=== PATIENT | female | born 1975 | race Caucasian/White ===

== ENCOUNTER 2019-12-22 02:37 | Observation (INO) ==
--- OUTSIDE RECORDS SUMMARY | 2019-12-22 02:44 | External Medical Summary | Continuity of Care Document ---
:1975 Author Name Mckayla Guerrier, Provider Address Unavailable Unavailable , Care Team Providers Name Role Phone Unavailable Unavailable Unavailable PCP, NO Unavailable Unavailable Unavailable Unavailable Unavailable Problems Encounter for routine pelvic examination (V72.31) (Z01.419) Allergies and Adverse Reactions No Known Drug Allergies (Allergy) Medications Ashlee LINARES M.D. Refills: 0 Procedures History of Oral Surgery Tooth Extraction Status: Completed Immunizations Immunizations not documented Family History aunt Family history of Colon Cancer (V16.0) Status: Active Social History - Smoking Status Never smoker Plan of Treatment Planned Observations Planned Goals not documented Results No Known Results Results not documented
[2019-12-22] MEDS ORDERED: ONDANSETRON INJ 2 MG/ML 2 ML VIAL IV STA (02:51)
[2019-12-22] MEDS ORDERED: ACETAMINOPHEN 1,000 MG/100 ML VIAL IV STA (02:51)
[2019-12-22] MEDS ORDERED: SODIUM CHLORIDE 0.9% 1000ML 1,000 ML IV ONE (02:51)
--- NOTE | 2019-12-22 02:54 | Emergency Department Note ---
History of Present Illness General Chief complaint: Abdominal Pain Stated complaint: ABDOMINAL PAIN History of Present Illness Maximum Pain Intensity: 5 This 44-year-old presents to the ER complaining of abdominal pain Location: Right lower quadrant Quality: Achy Severity: Moderate Duration: Tonight Timing: Started around 7:30 PM Context: Symptoms persisted and patient came in Modifying factors: better with rest; worse with activity Patient denies chest pain, dyspnea, fevers, vomiting, diarrhea, urinary symptoms. No prior abdominal surgeries. Home Medications Home Medications Medication Instructions Recorded Confirmed Type lamotrigine 25 mg PO DAILY 12/22/19 12/22/19 History lamotrigine 200 mg PO DAILY 12/22/19 12/22/19 History losartan 25 mg PO DAILY 12/22/19 12/22/19 History Allergies Allergy/AdvReac Type Severity Reaction Status Date / Time No Known Allergies Allergy Unverified 12/22/19 03:16 Past Med/Surg History Medical History High blood pressure Surgical History No pertinent past surgical history Social History Feels Safe at Home: Yes Smoking Status: Never smoker Review of Systems A total of 10 systems reviewed and were otherwise negative Physical Exam Vital Signs Vital Signs - 24 hr 12/22/19 02:43 12/22/19 03:12 12/22/19 04:36 Temperature 37 C Temperature Source Oral Pulse Rate 99 H Pulse Rate [Apical] 80 Respiratory Rate 18 18 Blood Pressure 150/94 H Blood Pressure [Right Arm] 137/77 Blood Pressure Mean 112 Blood Pressure Mean [Right Arm] 97 Pulse Oximetry 93 95 95 Oxygen Delivery Method Room Air Room Air Room Air Sepsis Recent Fever Within 48 Hours No Sepsis Action Taken by Nursing No Action Required 12/22/19 05:26 Temperature Temperature Source Pulse Rate Pulse Rate [Apical] 76 Respiratory Rate 18 Blood Pressure Blood Pressure [Right Arm] 139/87 Blood Pressure Mean Blood Pressure Mean [Right Arm] 104 Pulse Oximetry 97 Oxygen Delivery Method Room Air Sepsis Recent Fever Within 48 Hours Sepsis Action Taken by Nursing VITALS: Vitals are noted on the nurse's note and reviewed by myself. Vital signs stable. GENERAL: Pleasant female, in no acute distress, nondiaphoretic, well-developed well-nourished. SKIN: Capillary reflex less than 2 seconds. HEENT: Normocephalic. PERRLA. EOMI. Nares patent. Mucous membranes moist. Neck is supple without nuchal rigidity. HEART: Regular rate and rhythm without murmurs gallops or rubs. LUNGS: Clear to auscultation bilaterally without wheezes, rales or rhonchi. No retractions or accessory muscle use. ABDOMEN: Positive bowel sounds x 4. Normal tympanic percussion. Soft, tender to palpation right lower quadrant, without masses or organomegaly. Alvarado sign negative. No guarding or rebound tenderness. No CVA tenderness MUSCULOSKELETAL: No gross musculoskeletal defects. NEURO: Patient was alert and oriented to person place and time. No focal neurological deficits. Course Administered Medications Cefoxitin Sodium (Mefoxin) 2,000 mg in 60 mls @ 100 mls/hr IV NOW STA Stop: 12/22/19 05:44 Last Admin: 12/22/19 05:23 Dose: 100 mls/hr Documented by: [id number] Ioversol (Optiray 320 100ml) 100 ml IV ONCE PRN PRN Reason: Interaction Checking Stop: 12/26/19 04:13 Last Admin: 12/22/19 04:14 Dose: 93 ml Documented by: [id number] Discontinued Medications Dicyclomine HCl (Bentyl) 20 mg IM NOW ONE Stop: 12/22/19 03:30 Last Admin: 12/22/19 03:42 Dose: 20 mg Documented by: [id number] Sodium Chloride (Nss 1000ml) 1,000 mls @ 999 mls/hr IV .Q1H1M ONE Stop: 12/22/19 03:51 Last Infusion: 12/22/19 04:35 Dose: 0 mls/hr Documented by: [id number] Admin: 12/22/19 03:09 Dose: 999 mls/hr Documented by: [id number] Acetaminophen (Ofirmev) 1,000 mg in 100 mls @ 400 mls/hr IV NOW STA Stop: 12/22/19 03:05 Last Infusion: 12/22/19 03:33 Dose: 0 mls/hr Documented by: [id number] Admin: 12/22/19 03:10 Dose: 400 mls/hr Documented by: [id number] Ondansetron HCl (Zofran) 4 mg IV NOW STA Stop: 12/22/19 02:52 Last Admin: 12/22/19 03:10 Dose: 4 mg Documented by: [id number] Medical Decision Making Medical Records Attestation: I reviewed the patient's medical records. Home Medications Current Medication List: was personally reviewed by me Laboratory Data Attestation: I reviewed the patient's lab results. Result diagrams: 12/22/19 03:28 12/22/19 03:28 Lab Results 12/22/19 12/22/19 12/22/19 Range/Units 03:03 03:03 03:28 WBC 11.94 H (4.8-10.8) K/uL RBC 4.05 L (4.2-5.4) M/uL Hgb 12.2 (12.0-16.0) g/dL Hct 35.7 L (37-47) % MCV 88.1 (80-100) fL MCH 30.1 (25-34) pg MCHC 34.2 (32-36) g/dL RDW Std Deviation 41.9 (36.4-46.3) fL RDW Coeff of Marika 13.0 (11.5-14.5) % Plt Count 208 (130-400) K/uL MPV 8.8 (7.4-10.4) fL Immature Gran % (Auto) 0.4 % Neut % (Auto) 82.9 % Lymph % (Auto) 11.8 % [place] % (Auto) 4.5 % Eos % (Auto) 0.3 % Baso % (Auto) 0.1 % Immature Gran # (Auto) 0.05 H (0.00-0.02) K/uL Neut # (Auto) 9.90 H (1.4-6.5) K/uL Lymph # (Auto) 1.41 (1.2-3.4) K/uL [place] # (Auto) 0.54 (0.11-0.59) K/uL Eos # (Auto) 0.03 (0-0.5) K/uL Baso # (Auto) 0.01 (0-0.2) K/uL Sodium (136-145) mmol/L Potassium (3.5-5.1) mmol/L Chloride (98-107) mmol/L Carbon Dioxide (21-32) mmol/L Anion Gap (3-11) BUN (7-18) mg/dl Creatinine (0.6-1.2) mg/dl Est Cr Clr Drug Dosing ml/min Est GFR ( Amer) Est GFR (Non-Af Amer) BUN/Creatinine Ratio (10-20) Glucose (70-99) mg/dl Calcium (8.5-10.1) mg/dl Total Bilirubin (0.2-1) mg/dl AST (15-37) U/L ALT (12-78) U/L Alkaline Phosphatase (45-117) U/L Total Protein (6.4-8.2) gm/dl Albumin (3.4-5.0) gm/dl Globulin (2.5-4.0) gm/dl Albumin/Globulin Ratio (0.9-2) Lipase (73-393) U/L Urine Color Yellow Urine Appearance Cloudy A (Clear) Urine pH 7.5 (4.5-7.5) Ur Specific [place] 1.023 (1.000-1.030) Urine Protein Negative (Negative) Urine Glucose (UA) Negative (Negative) Urine Ketones Negative (Negative) Urine Blood 1+ H (Negative) Urine Nitrite Negative (Negative) Urine Bilirubin Negative (Negative) Urine Urobilinogen Negative (Negative) Ur Leukocyte Esterase Trace H (Negative) Urine WBC (Auto) 5-10 H (0-5) /hpf Urine RBC (Auto) 10-30 H (0-4) /hpf U Hyaline Cast (Auto) 5-10 H (0-5) /lpf U Epithel Cells (Auto) >30 H (0-5) /lpf Urine Bacteria (Auto) 1+ H (Negative) POC Ur Test NEG (NEG) 12/22/19 Range/Units 03:28 WBC (4.8-10.8) K/uL RBC (4.2-5.4) M/uL Hgb (12.0-16.0) g/dL Hct (37-47) % MCV (80-100) fL MCH (25-34) pg MCHC (32-36) g/dL RDW Std Deviation (36.4-46.3) fL RDW Coeff of Marika (11.5-14.5) % Plt Count (130-400) K/uL MPV (7.4-10.4) fL Immature Gran % (Auto) % Neut % (Auto) % Lymph % (Auto) % [place] % (Auto) % Eos % (Auto) % Baso % (Auto) % Immature Gran # (Auto) (0.00-0.02) K/uL Neut # (Auto) (1.4-6.5) K/uL Lymph # (Auto) (1.2-3.4) K/uL [place] # (Auto) (0.11-0.59) K/uL Eos # (Auto) (0-0.5) K/uL Baso # (Auto) (0-0.2) K/uL Sodium 138 (136-145) mmol/L Potassium 4.0 (3.5-5.1) mmol/L Chloride 109 H (98-107) mmol/L Carbon Dioxide 24 (21-32) mmol/L Anion Gap 5.0 (3-11) BUN 12 (7-18) mg/dl Creatinine 0.79 (0.6-1.2) mg/dl Est Cr Clr Drug Dosing 100.7 ml/min Est GFR ( Amer) 104.8 Est GFR (Non-Af Amer) 90.4 BUN/Creatinine Ratio 14.9 (10-20) Glucose 106 H (70-99) mg/dl Calcium 9.2 (8.5-10.1) mg/dl Total Bilirubin 0.4 (0.2-1) mg/dl AST 10 L (15-37) U/L ALT 18 (12-78) U/L Alkaline Phosphatase 93 (45-117) U/L Total Protein 6.8 (6.4-8.2) gm/dl Albumin 3.2 L (3.4-5.0) gm/dl Globulin 3.6 (2.5-4.0) gm/dl Albumin/Globulin Ratio 0.9 (0.9-2) Lipase 55 L (73-393) U/L Urine Color Urine Appearance (Clear) Urine pH (4.5-7.5) Ur Specific [place] (1.000-1.030) Urine Protein (Negative) Urine Glucose (UA) (Negative) Urine Ketones (Negative) Urine Blood (Negative) Urine Nitrite (Negative) Urine Bilirubin (Negative) Urine Urobilinogen (Negative) Ur Leukocyte Esterase (Negative) Urine WBC (Auto) (0-5) /hpf Urine RBC (Auto) (0-4) /hpf U Hyaline Cast (Auto) (0-5) /lpf U Epithel Cells (Auto) (0-5) /lpf Urine Bacteria (Auto) (Negative) POC Ur Test (NEG) Imaging Data Attestation: I personally reviewed and interpreted this imaging study as follows: MDM Narrative Prior records/ancillary studies reviewed. Triage Nursing notes reviewed. The patient's history was concerning for abdominal pain. Differential diagnosis: Etiologies such as appendicitis, diverticulitis, PUD, biliary pathology, UTI, pancreatitis, obstruction, mesenteric ischemia, aortic pathology, infections, inflammatory bowel disease, renal colic, as well as others were entertained. Physical examination findings: As above. ER treatment provided: IV fluids, Tylenol, Zofran, Bentyl, Mefoxin On reassessment the patient felt better. Diagnostics interpreted by me: The labs revealed mild leukocytosis. Negative urine. Negative hCG Imaging studies: CT ABDOMEN & PELVIS With Contrast: The appendix is very mildly dilated measuring 9 mm. Questionable minimal fat stranding around the appendix. Very early appendicitis could potentially have this appearance in the appropriate clinical setting. Unremarkable appearance of the remainder of the GI tract. Status post cholecystectomy. Unremarkable appearance of the liver, pancreas, spleen, adrenal glands, kidneys, and reproductive organs. Fat-containing umbilical hernia. Radiologist: Konstantin Medina MD Consultation: A consultation was placed with the surgeon Dr. Cadet. The case was discussed and diagnostics were reviewed. The patient was evaluated in the ER for further treatment. Exam and history seem consistent with possible acute appendicitis. Surgery was consulted. He will evaluate the patient. Patient was started on antibiotics. Results reviewed with the patient. By the evaluation outlined above emergent etiologies such as diverticulitis, PUD, biliary pathology, UTI, pancreatitis, obstruction, mesenteric ischemia, aortic pathology, inflammatory bowel disease, renal colic, as well as others were deemed relatively unlikely. The pt informed about the findings as listed above. All questions were answered and pleased with the treatment. The chart was completed utilizing Addictive voice recognition software. Grammatical errors, random word insertions, pronoun errors, and incomplete sentences are an occassional consequence of this system due to software limitations, ambient noise, and hardware issues. Any formal questions or concerns about the content, text, or information contained within the body of this dictation should be directly addressed to the physician human resources assistant manager for clarification. Impression & Plan Acute appendicitis Discharge Plan Visit Data Chief Complaint: Abdominal Pain Stated Complaint: ABDOMINAL PAIN ED Provider: Bronson Alcala ED Midlevel Provider: Shaunna Hernandez Discharge Problem: Acute appendicitis Patient Disposition: Being Evaluated by Surgeon Condition: Good Discharge Instructions Interventions: ED Discharge Assessment Last Done: 12/22/19 05:39 Forms Stand Alone Forms: Call Back Authorization, [facility] Prescriptions Prescriptions: No Action lamotrigine 200 mg Tablet 200 mg PO DAILY RF: 0 lamotrigine 25 mg Tablet 25 mg PO DAILY RF: 0 losartan 25 mg Tablet 25 mg PO DAILY RF: 0 Referrals Referrals: Irais Coy CRNP [Primary Care Provider] - Discharge Problem: Acute appendicitis Qualifiers: Acute appendicitis type: with localized peritonitis Appendicitis gangrene presence: unspecified whether gangrene present Appendicitis perforation presence: without perforation Appendicitis abscess presence: without abscess Qualified Code(s): K35.30 - Acute appendicitis with localized peritonitis, wi thout perforation or gangrene
[2019-12-22] MEDS ORDERED: DICYCLOMINE HCL 10 MG/ML 2 ML AMP/VIAL IM ONE (03:29)
[2019-12-22 03:32] LABS: Appearance Urine Cloudy (Clear); Bacteria Urine Automated 1+ (Negative); Bilirubin Urine Negative (Negative); Blood Urine 1+ (Negative); Color Urine Yellow; Epithelial Cell Urine Auto >30 /lpf (0-5); Glucose Urine UA Negative (Negative); Ketones Urine Negative (Negative); Leukocyte Esterase Urine Trace (Negative); Nitrite Urine Negative (Negative); Protein Urine Negative (Negative); Specific Gravity Urine 1.023 (1.000-1.030); Urobilinogen Urine Negative (Negative); pH Urine 7.5 (4.5-7.5)
[2019-12-22 03:40] LABS: Basophils # (auto) 0.01 K/uL (0-0.2); Basophils % (auto) 0.1 %; Eosinophils # (auto) 0.03 K/uL (0-0.5); Eosinophils % (auto) 0.3 %; Hematocrit (blood only) 35.7 % (37-47); Hemoglobin 12.2 g/dL (12.0-16.0); Immature Granulocytes # (auto) 0.05 K/uL (0.00-0.02); Immature Granulocytes % (auto) 0.4 %; Lymphocytes # (auto) 1.41 K/uL (1.2-3.4); Lymphocytes % (auto) 11.8 %; Mean Corpuscular Hemoglobin 30.1 pg (25-34); Mean Corpuscular Hgb Conc 34.2 g/dL (32-36); Mean Corpuscular Volume 88.1 fL (80-100); Mean Platelet Volume 8.8 fL (7.4-10.4); Monocytes # (auto) 0.54 K/uL (0.11-0.59); Monocytes % (auto) 4.5 %; Neutrophils % (auto) 82.9 %; Platelet Count 208 K/uL (130-400); RDW Standard Deviation 41.9 fL (36.4-46.3); Red Blood Count 4.05 M/uL (4.2-5.4); White Blood Count 11.94 K/uL (4.8-10.8)
[2019-12-22 04:04] LABS: Albumin Level 3.2 gm/dl (3.4-5.0); BUN Creatinine Ratio 14.9 (10-20); Calcium 9.2 mg/dl (8.5-10.1); Creatinine Clr Calc Pharmacy 100.7 ml/min; Est GFR (African American) 104.8; Est GFR (Non-African American) 90.4
[2019-12-22 04:07] LABS: Albumin Globulin Ratio 0.9 (0.9-2); Bilirubin,Total 0.4 mg/dl (0.2-1); Globulin 3.6 gm/dl (2.5-4.0); Total Protein 6.8 gm/dl (6.4-8.2)
[2019-12-22] MEDS ORDERED: IOVERSOL 100ml IV PRN (04:14)
[2019-12-22] MEDS ORDERED: cefOXitin 2,000 MG/60 ML BAG IV STA (05:09)
[2019-12-22] MEDS ORDERED: MIDAZOLAM HCL 1 MG/ML 2ML VIAL ONE (05:49)
[2019-12-22] MEDS ORDERED: fentaNYL citrate 100 MCG/2 ML VIAL ONE ×2 (05:49→07:57)
[2019-12-22] MEDS ORDERED: DEXAMETHASONE SOD INJ 4 MG/ML VIAL ONE (05:53)
[2019-12-22] MEDS ORDERED: PROPOFOL IV EMULSION 10 MG/ML 20 ML VIAL IV ONE (05:53)
[2019-12-22] MEDS ORDERED: GLYCOPYRROLATE 0.2 MG/ML VIAL ONE (05:53)
[2019-12-22] MEDS ORDERED: SUCCINYLCHOLINE CHLORIDE 20 MG/ML 10 ML VIAL ONE (05:53)
[2019-12-22] MEDS ORDERED: ONDANSETRON INJ 2 MG/ML 2 ML VIAL ONE (05:53)
[2019-12-22] MEDS ORDERED: NEOSTIGMINE METHYLSULFATE 5 MG/5 ML SYR ONE (05:53)
[2019-12-22] MEDS ORDERED: ROCURONIUM BROMIDE 10 MG/ML 5 ML VIAL ONE (05:53)
[2019-12-22] MEDS ORDERED: ePHEDrine sulfate 50 MG/ML AMP IV PRN (06:03)
[2019-12-22] MEDS ORDERED: ATROPINE SULFATE 0.1 MG/ML 10ML SYR IV PRN (06:03)
[2019-12-22] MEDS ORDERED: HYDROmorphone INJ 1 MG/ML SYRINGE IV PRN (06:03)
[2019-12-22] MEDS ORDERED: ONDANSETRON INJ 2 MG/ML 2 ML VIAL IV PRN ×2 (06:03→07:32)
--- NOTE | 2019-12-22 06:04 | Anesthesiology Consultation ---
Date of Service December 22, 2019 Assessment & Plan (1) Encounter for pre-operative examination: Chart Review Chart Review: Acceptable Risk for Surgery and Patient NOT seen in Pre Admission Testing Consults Requested none History Surgery Operation Date: 12/22/19 06:15 Proposed Procedures p Laparoscopic Appendectomy - Gio Cadet MD Height/Weight Height: 5 ft 3 in Weight: 98.8 kg Allergies Allergy/AdvReac Type Severity Reaction Status Date / Time No Known Allergies Allergy Unverified 12/22/19 03:16 Medications Home Medications Medication Instructions Recorded Confirmed Last Taken lamotrigine 25 mg PO DAILY 12/22/19 12/22/19 Unknown lamotrigine 200 mg PO DAILY 12/22/19 12/22/19 Unknown losartan 25 mg PO DAILY 12/22/19 12/22/19 Unknown Active Medications Generic Name Dose Route Start Last Admin Trade Name Freq PRN Reason Stop Dose Admin Ioversol 100 ml 12/22/19 04:14 12/22/19 04:14 Optiray 320 100ml IV 12/26/19 04:13 93 ml ONCE PRN Administration Interaction Checking NPO Date Last Intake of Fluids: 12/21/19 Time Last Intake of Fluids: 17:30 Date Last Intake of Solids: 12/21/19 Time Last Intake of Solids: 17:30 Past Medical History Medical History (Updated 12/22/19 @ 06:04 by Sanchez Mcdonnell MD) High blood pressure Exercise / Class Metabolic Activity II 4-5 Yardwork/Stairs/Walk up hill Past Surgical History Surgical History No pertinent past surgical history lap rody Past Anesthesia History No Hx of Anesthesia Complications and No Family Hx of Anesthesia Complications History of PONV No Hx of PONV and No Hx of Motion Sickness Social History Smoking Status: Never smoker Do You Dip or Chew Tobacco: No Hx Alcohol Use: No Physical Exam Vital Signs Last Vital Signs Temp 37 C 12/22/19 02:43 Pulse 76 12/22/19 05:26 Resp 18 12/22/19 05:26 BP 139/87 12/22/19 05:26 Pulse Ox 97 12/22/19 05:26 Testing Laboratory Results 12/22/19 03:28 12/22/19 03:28 Urine Color Yellow 12/22/19 03:03 Urine Appearance Cloudy (Clear) A 12/22/19 03:03 Urine pH 7.5 (4.5-7.5) 12/22/19 03:03 Ur Specific [place] 1.023 (1.000-1.030) 12/22/19 03:03 Urine Protein Negative (Negative) 12/22/19 03:03 Urine Glucose (UA) Negative (Negative) 12/22/19 03:03 Urine Ketones Negative (Negative) 12/22/19 03:03 Urine Nitrite Negative (Negative) 12/22/19 03:03 Ur Leukocyte Esterase Trace (Negative) H 12/22/19 03:03 Urine WBC (Auto) 5-10 /hpf (0-5) H 12/22/19 03:03 Urine RBC (Auto) 10-30 /hpf (0-4) H 12/22/19 03:03 U Hyaline Cast (Auto) 5-10 /lpf (0-5) H 12/22/19 03:03 U Epithel Cells (Auto) >30 /lpf (0-5) H 12/22/19 03:03 Urine Bacteria (Auto) 1+ (Negative) H 12/22/19 03:03 12/22/19 03:03 POC Ur Test NEG
--- NOTE | 2019-12-22 06:14 | History & Physical Bridge Note ---
Date of Service December 22, 2019 History & Physical Bridge Note I have examined the patient, reviewed the History & Physical and in the interval since the performance of the History & Physical I have noted the following changes of clinical significance: no changes noted
--- NOTE | 2019-12-22 06:14 | Surgery Consultation ---
Date of Consultation December 22, 2019 Assessment & Plan (1) Acute appendicitis: pt is a 44 year-old female who presents to ER with one day history RLQ pain, IMP: acute appendicitis, Plan, I recommended to do laparoscopic appendectomy, possible open , D/W benefits, risks and alternatives of the surgery, the risks - infection,bleeding, abscess, injury bowel, pt agrees with the surgery, I answered all questions, cefoxitin 2 gm iv now, History of Present Illness History of Present Illness History of Present Illness General Chief complaint: Abdominal Pain Stated complaint: ABDOMINAL PAIN History of Present Illness Maximum Pain Intensity: 5 This 44-year-old presents to the ER complaining of abdominal pain Location: Right lower quadrant Quality: Achy Severity: Moderate Duration: Tonight Timing: Started around 7:30 PM Context: Symptoms persisted and patient came in Modifying factors: better with rest; worse with activity Patient denies chest pain, dyspnea, fevers, vomiting, diarrhea, urinary symp toms. No prior abdominal surgeries. I ( Gio Cadet MD) got a call for consult acute appendicitis, I reviewed pt's H/P , labs, CT scan with pt. Home Medications Home Medications Medication Instructions Recorded Confirmed Type lamotrigine 25 mg PO DAILY 12/22/19 12/22/19 History lamotrigine 200 mg PO DAILY 12/22/19 12/22/19 History losartan 25 mg PO DAILY 12/22/19 12/22/19 History Allergies Allergy/AdvReac Type Severity Reaction Status Date / Time No Known Allergies Allergy Unverified 12/22/19 03:16 Past Med/Surg History Medical History High blood pressure Surgical History No pertinent past surgical history Social History Feels Safe at Home: Yes Smoking Status: Never smoker Review of Systems A total of 10 systems reviewed and were otherwise negative Allergies Allergy/AdvReac Type Severity Reaction Status Date / Time No Known Allergies Allergy Unverified 12/22/19 03:16 Home Medications Home Medications Medication Instructions Recorded Confirmed Type lamotrigine 25 mg PO DAILY 02/06/20 02/06/20 History lamotrigine 200 mg PO DAILY 12/22/19 12/22/19 History losartan 25 mg PO DAILY 12/22/19 12/22/19 History Patient History Medical History High blood pressure Surgical History No pertinent past surgical history Social History Feels Safe at Home: Yes Smoking Status: Never smoker Review of Systems Review of Systems: All systems reviewed & are unremarkable except as noted in HPI & below Cardiovascular: Additional Comments: HTN Physical Exam Constitutional: WD/WN, vitals as above well developed and well nourished ENMT: external ear and nose normal, oropharynx normal Neck: trachea midline, no thyromegaly Respiratory: normal respiratory effort, lungs clear to auscultation normal respiratory effort Cardiovascular: RRR, no murmur, no edema Rate/Rhythm: regular rate and regular rhythm Heart Sounds: normal S1 and normal S2 Gastrointestinal (Abdomen): normal bowel sounds, soft, nontender, no hepatosplenomegaly Percussion/Palpation: + abdomen tender and abdomen soft tenderness at RLQ, no rebound pain, BS + Musculoskeletal: no cyanosis or clubbing, extremities motor strength 5/5 Skin: no rashes, warm and dry Neurologic: patellar DTR's 2+ bilat, sensation intact Psychiatric: Orientation: alert and oriented x 3 Results & Data Vital Signs (Past 12 Hours) Vital Signs Temp Pulse Pulse Resp BP BP Pulse Ox 12/22/19 05:26 76 18 139/87 97 12/22/19 04:36 80 18 137/77 95 12/22/19 03:12 95 12/22/19 02:43 37 C 99 H 18 150/94 H 93 Laboratory Results Abnormal lab results 12/22/19 12/22/19 12/22/19 Range/Units 03:03 03:28 03:28 WBC 11.94 H (4.8-10.8) K/uL RBC 4.05 L (4.2-5.4) M/uL Hct 35.7 L (37-47) % Immature Gran # (Auto) 0.05 H (0.00-0.02) K/uL Neut # (Auto) 9.90 H (1.4-6.5) K/uL Chloride 109 H (98-107) mmol/L Glucose 106 H (70-99) mg/dl AST 10 L (15-37) U/L Albumin 3.2 L (3.4-5.0) gm/dl Lipase 55 L (73-393) U/L Urine Appearance Cloudy A (Clear) Urine Blood 1+ H (Negative) Ur Leukocyte Esterase Trace H (Negative) Urine WBC (Auto) 5-10 H (0-5) /hpf Urine RBC (Auto) 10-30 H (0-4) /hpf U Hyaline Cast (Auto) 5-10 H (0-5) /lpf U Epithel Cells (Auto) >30 H (0-5) /lpf Urine Bacteria (Auto) 1+ H (Negative) Diagnostic Findings CT scan - acute appendicitis, 9mm (1) Acute appendicitis Acute appendicitis type: with localized peritonitis Appendicitis abscess presence: without abscess Appendicitis gangrene presence: unspecified whether gangrene present Appendicitis perforation presence: without perforation Qualified Code(s): K35.30 - Acute appendicitis with localized peritonitis, without perforation or gangrene
[2019-12-22] MEDS ORDERED: BUPIVACAINE 0.5 % 5 MG/1 ML MPF 30ML VIAL ONE (06:35)
[2019-12-22] MEDS ORDERED: BACITRACIN OINT 15 GM TUBE ONE (06:35)
[2019-12-22] MEDS ORDERED: LIDOCAINE HCL 1% 20 ML VIAL ONE (06:35)
--- NOTE | 2019-12-22 06:58 | CT Scan Report ---
CT OF THE ABDOMEN AND PELVIS WITH CONTRAST CLINICAL HISTORY: Right lower quadrant abdominal pain. COMPARISON STUDY: None. TECHNIQUE: Following IV administration of 93 mL of Optiray-320, axial images of the abdomen and pelvi s were obtained from the lung bases to the proximal femurs. Images were reviewed in the axial, sagitt al, and coronal planes. IV contrast was administered without complication. Automated exposure contro l was utilized for the study. A dose lowering technique was utilized adhering to the principles of A LEONA. CT DOSE: 1070.66 mGy.cm FINDINGS: Lung bases are unremarkable. There is no biliary ductal dilatation status post cholecystect abbie. No hepatic lesions are identified. The spleen, adrenal glands, kidneys and pancreas are unremark able. There are several spinous. There is no hydronephrosis. There is no evidence for a bowel obstruc tion. The appendix is mildly dilated, measuring 8 mm in caliber. The wall is slightly thickened and enhancing. There is trace periappendiceal infiltration. No free air or abscess. Fat-containing umbili mickey hernia is present. There is no evidence for bowel obstruction. No suspicious osseous lesions are noted. Major vasculature is patent. IMPRESSION: 1. Mildly dilated appendix with slightly thickened wall and trace periappendiceal infiltration. The f indings suggest early acute appendicitis. 2. Fat-containing umbilical hernia. ACT 112: Negative or not required by law. Electronically signed by: Thaddeus Carrion M.D. 12/22/2019 6:57 AM
--- NOTE | 2019-12-22 07:29 | Post Operative Brief Note ---
Immediate Post Op Note v1 Date of Surgery December 22, 2019 Pre & Post Diagnosis Operation Date: 12/22/19 06:15 Pre-Op Diagnosis: Acute Appendicitis Post-Op Diagnosis: Acute Appendicitis I identified the patient and participated in the time-out.: Yes Procedure Operation Date: 12/22/19 06:15 Actual Procedures p Laparoscopic Appendectomy - Gio Cadet MD Surgeon Gio Cadet MD Scientific Specialist quality systems technician Estimated Blood Loss 10 Findings Consistent with Post-Op Diagnosis Fluids 900ml Specimens appendix Anesthesia Type General Complications none Disposition Accompanied Patient To Recovery: Yes Disposition: Recovery Room Overlapping Procedure I was immediately available: during the entire case.
[2019-12-22] MEDS ORDERED: HYDROmorphone INJ 0.5 MG/0.5 ML SYR IV PRN (07:37)
[2019-12-22] MEDS ORDERED: LACTATED RINGER'S 1,000 ML IV SCH (07:45)
--- NOTE | 2019-12-22 07:48 | Anesthesiology Progress Note ---
Date of Service December 22, 2019 Anesthesia Post Procedure Vital Signs Vital Signs: Temp Pulse Pulse Resp BP BP Pulse Ox 12/22/19 05:26 76 18 139/87 97 12/22/19 04:36 80 18 137/77 95 12/22/19 03:12 95 12/22/19 02:43 37 C 99 H 18 150/94 H 93 Pain Intensity Abdomen: Pain Intensity: 3 Transfer of Care Handoff Completed per policy Notes Mental Status: alert / awake / arousable and participated in evaluation Patient Amnestic to Procedure: Yes Nausea / Vomiting: adequately controlled Pain: adequately controlled Airway Patency, RR, SpO2: stable & adequate BP & HR: stable & adequate Hydration State: stable & adequate Anesthetic Complications: no major complications apparent and Pt Satisfied with anesthetic care
[2019-12-22] MEDS: fentaNYL citrate 100 MCG/2 ML VIAL IV PRN ×2 (07:58→08:03)
[2019-12-22] MEDS ORDERED: ACETAMINOPHEN 325 MG TAB PO PRN (08:12)
--- NOTE | 2019-12-22 08:33 | Operative Report ---
DATE OF OPERATION: 12/22/2019 PREOPERATIVE DIAGNOSIS: Acute appendicitis. POSTOPERATIVE DIAGNOSIS: Acute appendicitis. OPERATION: Laparoscopic appendectomy. SURGEON: Gio Cadet MD ANESTHESIA: General. ESTIMATED BLOOD LOSS: About 10 mL FINDINGS: Acute appendicitis. COMPLICATIONS: None. INDICATIONS FOR THE PROCEDURE: This is a 44-year-old female who presented to ED with 1 day history of abdominal pain. The patient had a CT scan diagnosis of acute appendicitis. I recommended to do laparoscopic appendectomy, possible open. I did talk to the patient about the benefit, the risk, alternate procedure. I indicated the risks may include but not limited such as bleeding, infection, abscess, injury to bowel, patient understands. She signed informed consent and I answered all questions. DETAILS OF PROCEDURE: We brought the patient to the OR, put the patient in the supine position. The patient received SCD on bilateral legs to prevent DVT. Also, patient received 2 g cefoxitin IV for prophylactic antibiotic. The patient received general anesthesia without difficulty. The abdomen was prepped and draped in routine sterile fashion, after timeout, I injected local anesthesia by using 1% lidocaine mixed with 0.5% Marcaine just above the umbilicus, then I made a small incision just above umbilicus, opened fascia and opened peritoneum and under direct vision put a [place] trocar in, connected to CO2 to create pneumoperitoneum. Flow rate was 6 liter per minute. Pressure not more than 14 mmHg. Once we got a nice pneumoperitoneum, we put the camera in, looked around the abdomen, shows normal finding on the small bowel, large bowel; however, the appendix shows enlarged inflammation, diagnosis of acute appendicitis. Once we diagnosed as acute appendicitis, we put another two 5 mm trocar on the left lower quadrant area. Once all trocars in, we used the harmonic to take down the appendiceal, rechecked, no active bleeding. Then, we used a 45 mm Endo-LEONARDO staple for transection on the base of the appendix, rechecked the staple line intact. No active bleeding, no leak. Then we removed the appendix through the catch bag, then we reinserted [place] trocar in, connected to CO2 to create pneumoperitoneum, again looked around the abdomen, no active bleeding, no leak from staple line. Then we removed all trocar under direct vision. No active bleeding from the trocar sites. Pneumoperitoneum was released. Closed the umbilical incision, fascial layer by using #1 Vicryl [id number] x2, closed subcutaneous layer by using 2-0 Vicryl interrupted layer, closed skin by using 4-0 Vicryl continuous running, closed another two 5 mm trocar site of skin only by using 4-0 Vicryl. Then we put the dressing on. The patient tolerated the procedure well. All instrument, needle and sponge count were correct x2 at the end the case. The patient transferred to recovery room in stable condition. After procedure, I did talk to the patient about the OR finding and procedure we did. The specimen was sent to pathology. I attest to the content of the Intraoperative Record and any orders documented therein. Any exception s are noted below.
[2019-12-22] MEDS ORDERED: lamoTRIgine 25 MG TAB PO SCH (09:00)
[2019-12-22] MEDS ORDERED: lamoTRIgine 100 MG TAB PO SCH (09:00)
[2019-12-22] MEDS ORDERED: LOSARTAN POTASSIUM 25 MG TAB PO SCH (09:00)
[2019-12-22] MEDS: OXYCODONE/ACETAMINOPHEN 5mg/325mg TAB PO PRN ×2 (09:41→15:26)
--- NOTE | 2019-12-22 14:32 | Surgery Progress Note ---
Date of Service December 22, 2019 Assessment & Plan (1) Acute appendicitis: POD # 0 s/p laparoscopic appendectomy - vitals stable - post op pain controlled Plan: Encouraged patient to ambulate hallway if tolerates well and pain still controlled with oral meds okay for discharge home this evening advance diet as tolerated f/u surgical office in 2 weeks discharge instructions reviewed Rx for Percocet prn pain Discussed with Dr. Cadet who agrees with above Subjective feeling good preop pain resolved, postop pain at incisions controlled with Percocet no chest pain, sob, dizziness urinating without difficulty has not ambulated hallway Physical Exam Constitutional: WD/WN, vitals as above no acute distress Gastrointestinal (Abdomen): Inspection/Auscultation: abdomen normal to inspection; abdomen not distended Percussion/Palpation: abdomen soft; abdomen nontender, no guarding and abdomen not rigid Skin: no rashes, warm and dry + incision (covered with dressings, spotting present but dry) Psychiatric: A+Ox3, euthymic affect Results & Data Vital Signs (Past 12 Hours) Vital Signs Temp Pulse Pulse Pulse Resp BP BP 12/22/19 11:34 36.4 C L 73 17 111/71 12/22/19 10:32 36.7 C 66 17 114/74 12/22/19 09:33 36.3 C L 63 17 119/80 12/22/19 09:08 36.1 C L 60 16 115/78 12/22/19 08:25 65 17 129/77 12/22/19 08:15 75 20 130/82 12/22/19 08:05 73 11 L 120/81 12/22/19 07:55 71 18 126/83 12/22/19 07:47 36.3 C L 88 24 128/88 12/22/19 05:26 76 18 139/87 12/22/19 04:36 80 18 137/77 12/22/19 03:12 12/22/19 02:43 37 C 99 H 18 150/94 H Pulse Ox 12/22/19 11:34 93 12/22/19 10:32 96 12/22/19 09:33 95 12/22/19 09:08 94 12/22/19 08:25 95 12/22/19 08:15 94 12/22/19 08:05 97 12/22/19 07:55 99 12/22/19 07:47 97 12/22/19 05:26 97 12/22/19 04:36 95 12/22/19 03:12 95 12/22/19 02:43 93 (1) Acute appendicitis Acute appendicitis type: with localized peritonitis Appendicitis abscess presence: without abscess Appendicitis gangrene presence: unspecified whether gangrene present Appendicitis perforation presence: without perforation Qualified Code(s): K35.30 - Acute appendicitis with localized peritonitis, without perforation or gangrene
--- NOTE | 2019-12-26 11:55 | Discharge Summary ---
ADMITTING DIAGNOSIS: Acute appendicitis. DISCHARGE DIAGNOSIS: Acute appendicitis. OPERATION: Laparoscopic appendectomy. SURGEON: Gio Cadet MD. ANESTHESIA: General. DETAILS OF DISCHARGE SUMMARY: This is a 44-year-old female who presented to the ED with acute abdominal pain. The patient had a CT scan diagnosis of acute appendicitis on 12/22/2019 and we took the patient to the OR. We did a laparoscopic appendectomy. The patient tolerated the procedure well and after the procedure, the patient was transferred to recovery room and later on transferred to the regular floor. The patient is doing fine. She tolerated a clear diet and no significant abdominal pain, no nausea, no vomiting. PHYSICAL EXAMINATION: VITAL SIGNS: Temperature is 37.1, respiratory rate 18, blood pressure is 141/87, heart rate 71, O2 saturation 94% on room air. GENERAL: The patient is alert, awake, oriented x3. HEENT: Within normal limitation. NEUROLOGIC: Intact. NECK: No JVD. CHEST: Bilateral lung sounds clear. HEART: Normal S1, S2. No murmurs. ABDOMEN: Soft, nondistended. All dressing intact. No significant tenderness. Bowel sounds positive. EXTREMITIES: No edema. PLAN: The patient wanted to go home later in the evening and patient is doing fine. We gave the patient postop care instruction. The patient understands. I will follow up the patient in 2 weeks in my office.
== END 2019-12-22 17:23 | disposition home or self-care (01) ==
LOC: ED 02:37 → 3N 06:15 → OR 06:15